=== PATIENT | male | born 1945 | race Hispanic/Latino ===

== ENCOUNTER → 2022-04-08 | Outpatient (CLI) | payer MEDICARE | END | disposition home or self-care (01) | LOC: SHCH 10:09 | PROVIDERS: ATTEND Internal Medicine Cardiovascular Disease | DX: I87.2 Venous insufficiency (chronic) (peripheral) (principal) | CPT/HCPCS: 93970 ==

== ENCOUNTER 2022-08-08 06:53 | Day surgery (SDC) | payer MEDICARE ==
[2022-08-06 11:47] VITALS: BP 134/33
[2022-08-06 11:51] LABS: BASOPHILS % (AUTO) 0.4 % (0.0-5.0); EOSINOPHILS % (AUTO) 3.7 % (0.0-8.0); LYMPHOCYTES % (AUTO) 32.8 % (21.0-51.0); MEAN CORPUSCULAR VOLUME 84.8 fL (79-99); MONOCYTES % (AUTO) 7.5 % (3.0-13.0); NEUTROPHILS % (AUTO) 55.3 % (40.0-77.0); PLATELET COUNT (AUTO) 233 K/uL (130-400); RED BLOOD CELL COUNT(AUTO) 3.89 MIL/uL (4.50-6.20); RED CELL DISTRIBUTION WIDTH 13.1 % (11.0-15.5); WHITE BLOOD COUNT (AUTO) 7.1 K/uL (4.8-10.8)
[2022-08-06 12:01] LABS: INR 1.08 (0.85-1.15); PROTHROMBIN TIME 11.7 SEC (9.6-11.6)
[2022-08-06 12:02] LABS: PARTIAL THROMBOPLASTIN TIME 40.6 SEC (26.3-35.5)
[~2022-08-08] VITALS: Ht 175.3 cm; Wt 100.4 kg
[2022-08-08] VITALS (10 sets, daily range): BP systolic 130–160; BP diastolic 37–59
[~2022-08-08 06:53] MED LIST: 0.9% NACL 500ML IV.SOLN 500 ML IV SCH; AMLODIPINE-BENAZ PO; APIX5TAB PO; ATOR10 PO; FINA5TAB41 PO; INSU100I26 SQ; LEVE-43 PO; SITA1TAB6 PO; TAMS-1 PO
[2022-08-08] MEDS ORDERED: 0.9%NACL 1000ML 1,000 ML IV ONE (07:19)
[2022-08-08] MEDS ORDERED: HYDR-4064 PO (08:44)
[2022-08-08] MEDS ORDERED: LIDOCAINE HCL 1% MDV 50ML VIAL ONE (12:29)
[2022-08-08] MEDS ORDERED: MEPERIDINE-PF 25 MG/ML SYG ONE ×2 (12:30→14:17)
[2022-08-08] MEDS ORDERED: MIDAZOLAM HCL 1 MG/ML 2ML VIAL ONE ×2 (12:30→14:16)
[2022-08-08] MEDS ORDERED: HEPARIN 10,000 UNIT/10ML (1,000 UNIT/ML) VIAL ONE (12:31)
== END 2022-08-08 18:45 | disposition home or self-care (01) ==
LOC: DAH 06:53
PROVIDERS: ATTEND Internal Medicine Cardiovascular Disease
DX: I48.3 Typical atrial flutter (principal); I48.0 Paroxysmal atrial fibrillation; I45.10 Unspecified right bundle-branch block; I44.1 Atrioventricular block, second degree; I10 Essential (primary) hypertension; E11.51 Type 2 diabetes mellitus with diabetic peripheral angiopathy without gangrene; E78.5 Hyperlipidemia, unspecified; Z98.890 Other specified postprocedural states; Z82.49 Family history of ischemic heart disease and other diseases of the circulatory system; Z83.3 Family history of diabetes mellitus; Z80.9 Family history of malignant neoplasm, unspecified; Z86.73 Personal history of transient ischemic attack (TIA), and cerebral infarction without residual deficits
CPT/HCPCS: 80048; 85025; 85610; 85730; 36415; 93005; 93653; 82948; C1894 ×4; C1732 ×2; C1730 ×2; A4649 ×2; J7030; J1644 ×2; J2250 ×2; J2175 ×2; J3490; A4215; A4222; A4221; A4663; A4216; A4606; A4223 ×3; 99156; 99157

== ENCOUNTER → 2022-08-22 | Outpatient (CLI) | payer MEDICARE ==
[~2022-08-22] MED LIST changes: -0.9% NACL 500ML IV.SOLN 500 ML IV SCH; +HYDR-4064 PO
== END | disposition home or self-care (01) ==
LOC: RAH 12:10
PROVIDERS: ATTEND Internal Medicine Cardiovascular Disease
DX: R59.0 Localized enlarged lymph nodes (principal); R10.30 Lower abdominal pain, unspecified
CPT/HCPCS: 76882

== ENCOUNTER → 2024-03-02 | Outpatient (CLI) | payer MEDICARE ==
[~2024-03-02] VITALS: Ht 172.7 cm; Wt 96.6 kg
[2024-03-02 11:25] LABS: BASOPHILS # (AUTO) 0.02 K/uL (0.00-0.20); BASOPHILS % (AUTO) 0.4 % (0.0-5.0); EOSINOPHILS # (AUTO) 0.14 K/uL (0.00-0.70); EOSINOPHILS % (AUTO) 2.5 % (0.0-8.0); HEMATOCRIT 35.7 % (42-54); IMMATURE GRANULOCYTE ABSOLUTE 0.01 K/uL (0-1); LYMPHOCYTES # (AUTO) 1.8 K/uL (1.0-4.8); LYMPHOCYTES % (AUTO) 31.1 % (21.0-51.0); MEAN CORPUSCULAR HEMOGLOBIN 27.8 pg (27.0-33.0); MEAN CORPUSCULAR HGB CONC 32.8 g/dL (32.0-36.0); MEAN CORPUSCULAR VOLUME 84.8 fL (79-99); MONOCYTES # (AUTO) 0.4 K/uL (0.1-1.0); MONOCYTES % (AUTO) 7.8 % (3.0-13.0); NEUTROPHILS # (AUTO) 3.3 K/uL (1.8-7.7); PLATELET COUNT (AUTO) 171 K/uL (130-400); RED BLOOD CELL COUNT(AUTO) 4.21 MIL/uL (4.50-6.20); RED CELL DISTRIBUTION WIDTH 14.1 % (11.0-15.5); WHITE BLOOD COUNT (AUTO) 5.6 K/uL (4.8-10.8)
[2024-03-02 11:36] LABS: APPEARANCE,URINE CLEAR (CLEAR); BILIRUBIN,URINE NEGATIVE (NEGATIVE); COLOR,URINE YELLOW (YELLOW); GLUCOSE, URINE (UA) NEGATIVE (NEGATIVE); KETONES,URINE NEGATIVE (NEGATIVE); LEUKOCYTE ESTERASE ,URINE NEGATIVE Leu/uL (NEGATIVE); NITRATE,URINE NEGATIVE (NEGATIVE); PH,URINE 6.5 (5.0-8.0); PROTEIN,URINE 50 mg/dL (NEGATIVE)
[2024-03-02 11:39] LABS: INR 1.13 (0.85-1.15); PROTHROMBIN TIME 12.1 SEC (9.6-11.6)
[2024-03-02 11:40] LABS: PARTIAL THROMBOPLASTIN TIME 32.7 SEC (26.3-35.5)
[2024-03-02 11:46] LABS: ADD UA MICROSCOPIC YES
[2024-03-02 11:47] VITALS: BP 155/55; PULSE 58; RESP 16; TEMP 97.1
[2024-03-02 11:50] LABS: MUCUS,URINE RARE LPF (None Seen); SQUAMOUS EPITHELIAL CELL,UR RARE /HPF (0-2); WBC,URINE 0-1 /HPF (0-1)
[2024-03-02 11:52] LABS: CREATININE 1.1 mg/dL (0.5-1.3); POTASSIUM 4.9 mmol/L (3.5-5.1)
[2024-03-02 11:57] LABS: B-TYPE NATRIURETIC PEPTIDE 93 pg/mL (0-100)
== END | disposition home or self-care (01) ==
LOC: DAH 10:00 → EDSTATUS 11:00
PROVIDERS: ATTEND Internal Medicine Cardiovascular Disease
DX: Z01.818 Encounter for other preprocedural examination (principal); I45.10 Unspecified right bundle-branch block; I73.9 Peripheral vascular disease, unspecified; I48.91 Unspecified atrial fibrillation
CPT/HCPCS: 36415; 71045; 80048; 81001; 83880; 85025; 85610; 85730; 93005

== ENCOUNTER 2024-05-14 06:14 | Day surgery (SDC) | payer MEDICARE ==
[2024-05-10 08:43] VITALS: BP_SYST 148; PULSE 58; RESP 18; TEMP 97.7
[2024-05-10 08:47] LABS: BASOPHILS # (AUTO) 0.02 K/uL (0.00-0.20); BASOPHILS % (AUTO) 0.4 % (0.0-5.0); EOSINOPHILS % (AUTO) 3.7 % (0.0-8.0); HEMATOCRIT 33.4 % (42-54); IMMATURE GRANULOCYTE ABSOLUTE 0.02 K/uL (0-1); LYMPHOCYTES # (AUTO) 1.7 K/uL (1.0-4.8); LYMPHOCYTES % (AUTO) 31.7 % (21.0-51.0); MEAN CORPUSCULAR HEMOGLOBIN 28.9 pg (27.0-33.0); MEAN CORPUSCULAR HGB CONC 33.2 g/dL (32.0-36.0); MONOCYTES # (AUTO) 0.4 K/uL (0.1-1.0); MONOCYTES % (AUTO) 7.6 % (3.0-13.0); NEUTROPHILS # (AUTO) 3.1 K/uL (1.8-7.7); NEUTROPHILS % (AUTO) 56.2 % (40.0-77.0); PLATELET COUNT (AUTO) 153 K/uL (130-400); RED BLOOD CELL COUNT(AUTO) 3.84 MIL/uL (4.50-6.20); RED CELL DISTRIBUTION WIDTH 13.5 % (11.0-15.5); WHITE BLOOD COUNT (AUTO) 5.4 K/uL (4.8-10.8)
[2024-05-10 09:03] LABS: POTASSIUM 4.6 mmol/L (3.5-5.1)
[2024-05-10 09:04] LABS: INR 1.07 (0.85-1.15); PROTHROMBIN TIME 11.9 SEC (9.6-11.6)
[2024-05-10 09:05] LABS: PARTIAL THROMBOPLASTIN TIME 33.5 SEC (26.3-35.5)
--- NOTE | 2024-05-10 09:13 | EKG ---
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
[2024-05-10 09:18] LABS: ADD UA MICROSCOPIC YES; APPEARANCE,URINE CLEAR (CLEAR); BILIRUBIN,URINE NEGATIVE (NEGATIVE); COLOR,URINE LIGHT-YELLOW (YELLOW); GLUCOSE, URINE (UA) NEGATIVE (NEGATIVE); KETONES,URINE NEGATIVE (NEGATIVE); LEUKOCYTE ESTERASE ,URINE NEGATIVE Leu/uL (NEGATIVE); NITRATE,URINE NEGATIVE (NEGATIVE); PH,URINE 6.5 (5.0-8.0); PROTEIN,URINE 30 mg/dL (NEGATIVE); RBC,URINE 0-1 /HPF (0-1); UROBILINOGEN,URINE 0.2 mg/dL (0.2-1.0)
--- NOTE | 2024-05-10 09:31 | HMCIMG ---
Exam Type: CHEST 1VW Clinical Information: PREOP Comparison: None Findings: The lungs are clear of infiltrates. The heart is normal in size. The bony and soft tissue structures of the chest are unremarkable. Impression: Clear lungs.
[2024-05-10 09:32] LABS: B-TYPE NATRIURETIC PEPTIDE 52 pg/mL (0-100)
--- NOTE | 2024-05-10 12:30 | NUR ---
verify verified eliquis hold for 24 hours with velvet waller. ok to proceed
[~2024-05-14] VITALS: Ht 172.7 cm; Wt 96.3 kg
[2024-05-14] VITALS (24 sets, daily range): BP systolic 132–172; BP diastolic 31–57; PULSE 52–69; RESP 12–15; TEMP 97.2–97.4
[~2024-05-14 06:14] MED LIST changes: -FINA5TAB41 PO; -HYDR-4064 PO; +vitamin b12 PO
[2024-05-14] MEDS ORDERED: 0.9%NACL 1000ML 1,000 ML IV SCH ×2 (07:00→11:00)
[2024-05-14] MEDS ORDERED: LIDOCAINE HCL 400MG/20ML VIAL ONE (08:56)
[2024-05-14] MEDS ORDERED: HEParin 10,000 UNIT/10ML (1,000 UNIT/ML) VIAL ONE (08:56)
[2024-05-14] MEDS ORDERED: HEParin-NS 1,000 UNIT/500 ML 1,500 ML IV ONE (08:56)
[2024-05-14] MEDS ORDERED: IODIXANOL 320 MG/ML 100 ML VIAL ONE (08:56)
[2024-05-14] MEDS ORDERED: NITROGLYCERIN 50MG VIAL ONE (08:57)
[2024-05-14] MEDS ORDERED: FENTanyl CITRate PF 50 MCG/1 ML 2ML VIAL ONE ×2 (09:13→10:28)
[2024-05-14] MEDS ORDERED: MIDAZOLAM HCL 1 MG/ML 2ML VIAL ONE (09:13)
[2024-05-14] MEDS ORDERED: hydrALAZine 20MG/ML VIAL ONE (10:56)
[2024-05-14] MEDS ORDERED: DEXTROSE 50%-WATER 50 ML DISP.SYRIN IV PRN (11:00)
[2024-05-14] MEDS ORDERED: GLUCAGON 1MG KIT 1 MG ML IM PRN (11:00)
[2024-05-14] MEDS ORDERED: cloPIDOgrel 300MG TAB ONE (11:01)
[2024-05-14] MEDS ORDERED: ASPIRIN 81MG CHEW TAB ONE (11:01)
--- NOTE | 2024-05-14 11:13 | PRN ---
Procedure Note INDICATION FOR PROCEDURE: [] Symptom limiting claudication [place] class 3 PAD Diabetic angiopathy PROCEDURE: [] Conscious sedation Right common femoral arterial sheath placement 6 [place] Left SFA arterial sheath placement 6 [place] 65 cm from right common femoral artery parked in mid left SFA with pressure measurements and contrast injections Catheter placement to left distal popliteal artery with pressure measurement and contrast injection Angioplasty to mid and proximal left anterior tibial artery with the use of a 2.5 mm x 30 mm balloon deployed to 2.72 mm in both lesions Lithotripsy angioplasty to entirety of left popliteal artery with the use of a 5 mm x 80 mm shockwave device deployed to 4 6 and 10 atmospheres Lithotripsy angioplasty to to distal left SFA proximal left popliteal artery with a 5 mm x 80 mm shockwave device deployed to 6 atmospheres and 10 atmospheres Drug coated balloon angioplasty to left popliteal artery with the use of a 6 mm x 100 mm impact device deployed to 8 atmospheres and 12 atmospheres DATE OF PROCEDURE: May 14, 2024 CATERPILLAR OPERATOR: Alber Smyth MD [email or web address] PROCEDURE NOTE: [] Patient was brought to catheterization suite and prepped and draped in sterile fashion. An IV was started if not already in place and both groins were exposed for arterial access. 2% lidocaine was used for local anesthesia and then a micro puncture kit was used to gain access and once free flow blood was seen modified Seldinger technique was utilized to place a 6 [place] 10 cm sheath into the right common femoral artery. Next an Omni flush catheter was then placed and parked into the abdominal aorta pressure measurements were obtained and then aortogram was performed. Next this catheter was then used to direct a Glidewire down to the left SFA under fluoroscopic guidance. Next the 10 cm sheath was removed as was the Omni flush catheter and then a 65 cm 6 [place] sheath was parked from the right common femoral artery up and over and parked in the left SFA. Pressure measurements were obtained contrast injections were performed. Next the mini catheter 035 system was then parked in the left popliteal artery pressure measurements were obtained and a contrast injection was performed and then a run-through wire was then placed in the distal ongoing left anterior tibial artery under fluoroscopic guidance. Next the mini catheter was removed and then a 2.5 mm x 30 mm sprinter balloon was then placed in the mid left anterior tibial artery and deployed up to 2.72 mm. This was then brought back to the proximal left anterior tibial artery and deployed to 14 atmospheres again for 2 minutes. Follow up contrast injection with no evidence of dissection or perforation Next a 5 mm x 80 mm shockwave device was then placed into the left popliteal artery and deployed to 4 and 6 atmospheres with a total of 10 treatments administered. This was then brought back to the left SFA and deployed to 6 atmospheres x2 treatments total. This balloon was then deployed to 10 eddie ospheres in the left popliteal region and the left SFA region. Next a Sooqinitronic impact medicated balloon was then placed into the left popliteal artery and deployed to 8 atmospheres and then up to 12 atmospheres for a total of 3 minutes. Follow up contrast injection revealed no evidence of dissection or perforation with less than 20% residual stenosis in the left popliteal artery and left anterior tibial artery. Next the 65 cm sheath was then replaced with the 10 cm 6 [place] sheath and then a runoff was done of the right lower extremity. Sheath was then sewn into place and no complications occurred. FINDINGS: [] The abdominal aorta iliac vessels superficial femoral arteries profunda femoris popliteal arteries and infrapopliteal vessels are noted to all be severely calcified. There was no evidence of aneurysmal changes within the aorta. Renal arteries are noted to be patent. Bilateral common iliac arteries external iliac and internal iliac arteries are noted to be patent. Bilateral common femoral arteries and profunda femoris arteries are noted to be patent. There is a distal left SFA stenosis of 70% followed by 95-99% stenosis of left popliteal artery and an 85-90% stenosis noted of the proximal and left anterior tibial artery and 100% occlusion noted of the mid left anterior tibial artery. There is two-vessel runoff noted to the left foot via the left anterior tibial artery and left peroneal artery with 100% occlusion noted of the left posterior tibial artery with that vessel filling with collateral flow. On the right there was a 70-75% stenosis noted of the mid right popliteal artery with 100% occlusion noted of the right anterior tibial artery right tibioperoneal trunk right posterior tibial artery and right peroneal artery with the use vessels filling distally with collateral flow. IMPRESSION: [] Successful angioplasty to proximal mid left anterior tibial artery Successful lithotripsy and drug coated balloon angioplasty to left popliteal artery and left superficial femoral artery PLAN: [] Initiate Eliquis tonight Load with Plavix and aspirin today Continue with clopidogrel or Plavix daily for 30 days in addition to Eliquis No driving 24 hours No heavy lifting 5 lb or greater for 3 days IV fluids Discharge home later today ALBER SMYTH MD May 14, 2024 11:13
[2024-05-14] MEDS ORDERED: CLOP75TA32 PO (11:30)
[2024-05-14] MEDS ORDERED: INSULIN humuLIN R 100 UNIT/ML 3ML SQ SCH (11:30)
--- NOTE | 2024-05-14 13:19 | NUR ---
AT 1238 SHEATH FROM RIGHT GROIN REMOVED HELD FOR 20 MINUTES WITH A D-STAT. SCANT BLOOD NOTED TO D-STAT AFTER. SITE ASYMPTOMATIC. VSS NAD
== END 2024-05-14 16:46 | disposition home or self-care (01) ==
LOC: DAH 06:14
PROVIDERS: ATTEND Internal Medicine Cardiovascular Disease
DX: E11.51 Type 2 diabetes mellitus with diabetic peripheral angiopathy without gangrene (principal); I70.213 Atherosclerosis of native arteries of extremities with intermittent claudication, bilateral legs; I87.2 Venous insufficiency (chronic) (peripheral); I87.1 Compression of vein; I48.0 Paroxysmal atrial fibrillation; I48.92 Unspecified atrial flutter; I45.10 Unspecified right bundle-branch block; E66.9 Obesity, unspecified; I10 Essential (primary) hypertension; E78.5 Hyperlipidemia, unspecified; G40.909 Epilepsy, unspecified, not intractable, without status epilepticus; Z86.73 Personal history of transient ischemic attack (TIA), and cerebral infarction without residual deficits; Z89.412 Acquired absence of left great toe; Z82.49 Family history of ischemic heart disease and other diseases of the circulatory system; Z83.3 Family history of diabetes mellitus; Z80.9 Family history of malignant neoplasm, unspecified; Z68.32 Body mass index [BMI] 32.0-32.9, adult; Z79.01 Long term (current) use of anticoagulants; Z79.899 Other long term (current) drug therapy
CPT/HCPCS: 80048; 83880; 85025; 85610; 85730; 81001; 36415; 71045; 93005; 75625; 37228; 85347; 82948; 75716; C9764; C1887; C1725 ×3; C1769 ×2; C1894 ×2; C1893; J3010 ×2; J3490 ×2; J0360; J1644 ×2; J2250; Q9967; A4215; A6402; A4222; A6260; A4221; A4663; A4216; A6206; A4606; A4223 ×3; 75726; 96360; 96361; 99156; 99157